=== PATIENT | male | born 1950 | race Hispanic/Latino ===

== ENCOUNTER 2017-12-18 19:48 | Emergency (ER) | payer MEDICARE ==
[~2017-12-18] VITALS: Ht 165.1 cm; Wt 88.0 kg
[2017-12-18 20:15] VITALS: BP 117/76
== END 2017-12-18 20:28 | disposition home or self-care (01) ==
LOC: ER 19:48
DX: M25.532 Pain in left wrist (principal); G56.02 Carpal tunnel syndrome, left upper limb
CPT/HCPCS: 99284

== ENCOUNTER 2017-12-25 01:27 | Emergency (ER) | payer MEDICARE ==
[~2017-12-25] VITALS: Ht 165.1 cm; Wt 88.0 kg
[2017-12-25 02:03] LABS: BILIRUBIN,URINE NEGATIVE (NEGATIVE); CLARITY,URINE CLEAR (CLEAR); COLOR,URINE YELLOW (YELLOW); KETONES,URINE NEGATIVE (NEGATIVE); LEUKOCYTE ESTERASE ,URINE NEGATIVE (NEGATIVE); NITRITE,URINE NEGATIVE (NEGATIVE); PROTEIN,URINE DIPSTICK NEGATIVE (NEGATIVE); URINE UROBILINOGEN 0.2 mg/dL (0.2 - 1)
[2017-12-25 02:08] LABS: BACTERIA,URINE RARE /HPF; EPITHELIAL CELLS,URINE FEW /LPF; WBC,URINE (MAN) 0-5 /HPF (0-5)
[2017-12-25 03:33] VITALS: BP 108/69
== END 2017-12-25 03:21 | disposition home or self-care (01) ==
LOC: ER 01:27
DX: I95.1 Orthostatic hypotension (principal); E11.9 Type 2 diabetes mellitus without complications; G47.33 Obstructive sleep apnea (adult) (pediatric)
CPT/HCPCS: 81001; 99282

== ENCOUNTER → 2018-08-31 | Outpatient (RCR) | payer MEDICARE ==
[~2018-08-31] MED LIST: BYDUREON2 MG INJ; CLOMIPHENE CITR50 MG PO; COQ-10100 MG PO; FLOMAX0.4 MG PO; INVOKAMET PO; RANITIDINE HCL150 MG PO; SIMVASTATIN40 MG PO; TRIAMTERENE-HC1 EAC2 PO
== END ==
LOC: PT 08-17 15:50
PROVIDERS: ATTEND Specialist
DX: M75.121 Complete rotator cuff tear or rupture of right shoulder, not specified as traumatic (principal); M25.511 Pain in right shoulder; M62.81 Muscle weakness (generalized)
CPT/HCPCS: 97010; 97110 ×4; 97162; G8984; G8985

== ENCOUNTER 2018-09-07 15:35 | Outpatient (RCR) | payer MEDICARE, OTHER ==
[2018-11-04] MEDS ORDERED: INVOKAMET PO (09:57)
[2018-11-04] MEDS ORDERED: BYDUREON2 MG INJ (09:57)
[2018-11-04] MEDS ORDERED: FLOMAX0.4 MG PO (09:58)
[2018-11-04] MEDS ORDERED: SIMVASTATIN40 MG PO (09:58)
[2018-11-04] MEDS ORDERED: CLOMIPHENE CITR50 MG PO (09:58)
[2018-11-04] MEDS ORDERED: TRIAMTERENE-HC1 EAC2 PO (09:59)
[2018-11-04] MEDS ORDERED: RANITIDINE HCL150 MG PO (09:59)
[2018-11-04] MEDS ORDERED: COQ-10100 MG PO (10:00)
== END 2018-09-30 ==
LOC: PT 15:35
PROVIDERS: ATTEND Specialist
DX: M75.121 Complete rotator cuff tear or rupture of right shoulder, not specified as traumatic (principal); M25.511 Pain in right shoulder; M62.81 Muscle weakness (generalized)
CPT/HCPCS: 97110 ×3; 97139; 97140; G8984; G8985

== ENCOUNTER → 2018-11-07 | Day surgery (SDC) | payer MEDICARE ==
[2018-11-04 10:17] LABS: BASOPHILS % 0.6 % (0.0-1.0); EOSINOPHILS # (AUTO) 0.1 (0.0-0.4); EOSINOPHILS % 1.8 % (0.0-6.0); HEMATOCRIT 46.8 % (38.2-49.6); HEMOGLOBIN 16.4 g/dL (14.0-18.0); LYMPHOCYTES # (AUTO) 1.9 (1.0-3.2); LYMPHOCYTES % 30.1 % (18.0-39.1); MEAN CORPUSCULAR HEMOGLOBIN 31.1 pg (28-32); MEAN CORPUSCULAR VOLUME 88.6 fL (81-99); MONOCYTES # (AUTO) 0.5 (0.2-0.8); MONOCYTES % 7.8 % (4.4-11.3); NEUTROPHILS # (AUTO) 3.7 (2.1-6.9); NEUTROPHILS % 59.4 % (38.7-80.0); PLATELET COUNT 208 x10e3/uL (140-360); RED BLOOD COUNT 5.28 x10e6/uL (4.3-5.7); RED CELL DISTRIBUTION WIDTH 12.6 % (11.7-14.4)
--- NOTE | 2018-11-04 10:35 | Diagnostic Imaging Report ---
EXAM: CHEST 2 VIEWS, PA and lateral DATE: 11/04/2018 9:54 AM Time stamp on exam: 10:00 AM INDICATION: Preoperative COMPARISON: None FINDINGS: LINES/TUBES: None LUNGS: No consolidations or edema. PLEURA: No effusions or pneumothorax. HEART AND MEDIASTINUM: Normal size and contour. BONES AND SOFT TISSUES: No acute findings. Degenerative spurring of the spine. IMPRESSION: No acute thoracic abnormality. Signed by: Dr. Pawel Dia DO on 11/04/2018 10:32 AM
[2018-11-04 10:49] LABS: BLOOD UREA NITROGEN 17 mg/dL (7-26); BUN/CREATININE RATIO 18 (6-25); CALCIUM 9.7 mg/dL (8.4-10.2); CARBON DIOXIDE 28 mmol/L (22-29); CHLORIDE 96 mmol/L (98-107); CREATININE, SERUM 0.93 mg/dL (0.72-1.25); EST GLOMERULAR FILTRATION RATE > 60 ML/MIN (60-); GLUCOSE 168 mg/dL (74-118); SODIUM 137 mmol/L (136-145)
[~2018-11-07] MED LIST changes: +CEFAZOLIN SOD 1 GM/D5W 50ML 50 ML IV ONE; +DEXAMETHASONE SOD PHOS INJ 4 MG/ML VIAL ONE; +EPHEDRINE SULFATE INJ 50 MG/10 ML SYR ONE; +EPINEPHRINE 1 MG/ML 30ML VIAL ONE; +EYE LUBRICANT OPTH OINT 3.5GM TUBE OP ONE; +FENTANYL CITRATE/PF 100MCG/2 ML INJ ONE; +GLYCOPYRROLATE INJ 1MG/ 5 ML SYR ONE; +LIDOCAINE 2% /EPINEPHRINE 20 ML SDV INJ ONE; +LIDOCAINE HCL 2% LOCAL INJ 5 ML SDV VIAL INJ ONE; +MIDAZOLAM HCL 2 MG/2 ML VIAL ONE; +NEOSTIGMINE 5 MG/5ML SYR ONE; +ONDANSETRON HCL INJ 2 MG/ML VIAL ONE; +PROPOFOL IV EMULSION 10 MG/ML 20 ML VIAL ONE; +ROCURONIUM BROMIDE 10 MG/ML 5ML VIAL ONE; +ROPIVACAINE 0.5% 5 MG/ML 30 ML SDV ONE; +SEVOFLURANE INHAL SOLN 250 ML PEN BTL ONE
--- OUTSIDE RECORDS SUMMARY | 2018-11-07 05:52 | XMS REPORT | Summary of Care ---
Author Author Baudilio Lezama Organization Unknown Address Unknown Phone Unavailable Care Team Providers Care Web Engineer Name Role Phone CORRALES M.D., ABSALON Unavailable Unavailable Baudilio Lezama Unavailable Unavailable MIRNA FISHER MD Unavailable Unavailable Unavailable Unavailable Functional Status Name Dates Details Functional status health issues are not documented Status: Name Dates Details Cognitive status health issues are not documented Status: Problems Name Dates Details Controlled type 2 diabetes mellitus without complication, without long-term current use of insulin (250.00, E11.9) Status: Active Other hyperlipidemia (272.4, E78.4) Status: Active Sleep apnea in adult (327.23, G47.30) Status: Active Medications Name Dates Details Invokamet 150-1000 MG Oral Tablet TAKE 1 TABLET BY MOUTH TWICE DAILY WITH MEALS CORRALES M.D., ABSALON * Start : 21-Jun-2018 Active Simvastatin 20 MG Oral Tablet TAKE 1 TABLET AT BEDTIME. * Refills: 0 CORRALES M.D., ABSALON * Start : 21-Jun-2018 Active RaNITidine HCl - 300 MG Oral Capsule TAKE 1 CAPSULE DAILY. * Refills: 0 CORRALES M.D., ABSALON * Start : 21-Jun-2018 Active Tamsulosin HCl - 0.4 MG Oral Capsule * Refills: 0 CORRALES M.D., ABSALON * Start : 21-Jun-2018 Active Vascepa 1 GM Oral Capsule * Refills: 0 CORRALES M.D., ABSALON * Start : 21-Jun-2018 Active Bydureon 2 MG Subcutaneous Pen-injector * Refills: 0 CORRALES M.D., ABSALON * Start : 21-Jun-2018 Active Vitamin D3 80446 UNIT Oral Capsule 1 capsule once weekly * Refills: 0 CORRALES M.D., ABSALON * Start : 21-Jun-2018 Active Allergies and Adverse Reactions Name Dates Details No Known Drug Allergies (Allergy) Status: Active Past Medical History Name Dates Details History of diabetes mellitus (V12.29, Z86.39) Status: Resolved History of high cholesterol (V12.29, Z86.39) Status: Resolved History of prostate disorder (V13.29, Z87.438) Status: Resolved Procedures Procedure Dates Details History of Hernia repair Completed History of Tonsillectomy Completed Immunization Name Dates Details Immunizations not documented Family History Name Dates Details Family history of diabetes mellitus (V18.0, Z83.3) Status: Active Name Dates Details Family history of diabetes mellitus (V18.0, Z83.3) Status: Active Name Dates Details Family history of diabetes mellitus (V18.0, Z83.3) Status: Active Social History Name Dates Details - Status: Name Dates Details Former smoker Vital Signs Date Test Result Details No Known Vitals to report Results Date Description Value Details Results not documented Plan of Care Name Dates Details Planned Observations Planned Goals not documented Planned Encounters Appointment; LAITH MONTAÑO M.D. On: 11-Oct-2018 14:00 Instructions Name Dates Details Instructions not documented Encounters Appointment; LUIS E CORRALES M.D. Encounter Diagnosis: Problem not documented On: 21-Jun-2018 14:00
--- OUTSIDE RECORDS SUMMARY | 2018-11-07 05:52 | XMS REPORT ---
Author Author [facility] Address Unknown Phone Unavailable Care Team Providers Care Electron Microscopist Name Role Phone LEWIS CONTRERAS Unavailable Unavailable Problems This patient has no known problems. Allergies, Adverse Reactions, Alerts This patient has no known allergies or adverse reactions. Medications This patient has no known medications. Results Test Description Test Time Test Comments Text Results Atomic Results Result Comments CHEST 2 VIEWS 2018-11-04 10:31:00 [place] [address] Patient Name: VINCE GRAHAM MR #: [id number] : 1950 Age/Sex: 68/M Req #: [id number] Adm Physician: Ordered by: LEWIS CONTRERAS MD Report #: [id number] Location: OR Room/Bed: Procedure: [id number] DX/CHEST 2 VIEWS Exam Date: 11/04/18 Exam Time: 1000 REPORT STATUS: Signed EXAM: CHEST 2 VIEWS, PA and lateral DATE: 11/04/2018 9:54 AM Time stamp on exam: 10:00 AM INDICATION: Preoperative COMPARISON: None FINDINGS: LINES/TUBES: None LUNGS: No consolidations or edema. PLEURA: No effusions or pneumothorax. HEART AND MEDIASTINUM: Normal size and contour. BONES AND SOFT TISSUES: No acute findings. Degenerative spurring of the spine. IMPRESSION: No acute thoracic abnormality. Signed by: Dr. Aleksandra Dia DO on 11/04/2018 10:32 AM Dictated By: ALEKSANDRA DIA DO 1032 Transcribed By: AZAEL on 11/04/18 1032 COPY TO: LEWIS CONTRERAS MD
[2018-11-07 10:55] VITALS: BP 121/72
--- NOTE | 2018-11-07 13:29 | Operative Report ---
DATE OF PROCEDURE: November 07, 2018 LOOM BLOWER: Daniel Galarza PA-C The patient was brought to the operating room for induction of anesthesia. Throughout this case, my PA's assistance was necessary for retraction of soft tissue and positioning of the extremity. This allows for efficient and technically successful execution of the operation and is considered medically necessary. PREOPERATIVE DIAGNOSIS: Rotator cuff tear right shoulder. POSTOPERATIVE DIAGNOSIS: Rotator cuff tear right shoulder. PROCEDURE: Right shoulder arthroscopy, subacromial decompression, rotator cuff repair. INDICATIONS: The patient is a 68-year-old gentleman who has a long history of right shoulder pain. Clinic exam and MRI findings are consistent with a full-thickness rotator cuff tear. The patient would like to proceed with definitive intervention. He has had a left shoulder rotator cuff repair in the past. He understands the risks and benefits and the lengthy recovery. He wishes to proceed. DESCRIPTION OF PROCEDURE: The patient was brought to the operating room and placed under general anesthetic. He received a regional block and prophylactic antibiotics in the holding area. He was positioned in the beach chair position on the shoulder table. A preoperative time out was performed. A standard posterior arthroscopy portal was established. The shoulder was insufflated with sterile saline. There was some degenerative fraying of the superior labrum. A lateral working portal was established. There was indeed a full-thickness tear of the supraspinatus and infraspinatus. A mechanical shaver was introduced into the joint. The articular surface of the rotator cuff tear was debrided back to more healthy tissue. The biceps tendon was inspected and probed. It was intact and stable at the supraglenoid tubercle. The glenohumeral surfaces showed some mild grade-1 changes. The fraying of the labrum was gently debrided. The scope was then placed into the subacromial space. A subacromial bursectomy and bone decompression were performed using a 5.5 mm Electroblade shaver. Hemostasis was obtained along the way. The lateral recess was opened up for better visibility. The greater tuberosity was gently decorticated. An Arthrex SpeedBridge double row system was used to repair the rotator cuff. Diverging co pilot holes were placed in the anterior and posterior portion of the tuberosity. The bioabsorbable anchors pre-loaded with FiberTape stitches were seeded. These were passed through the rotator cuff using a Scorpion suture passer. An anterior shuttle portal was established. The tendon was then repaired down to bleeding cancellous bone using superior lateral secondary suture anchors attached to the FiberTape stitches. Excellent secure fixation was felt to be obtained. The sutures were cut short, and the arthroscopic instruments were removed. The arthroscopic portal incisions were closed with nylon stitches. A sterile bandage and an UltraSling were applied. Estimated blood loss was 10 mL. At the end of the procedure, all needle and sponge counts were correct. Job#: [id number] EV
== END | disposition home or self-care (01) ==
LOC: OR 05:50
PROVIDERS: ATTEND Specialist
DX: M75.121 Complete rotator cuff tear or rupture of right shoulder, not specified as traumatic (principal); E11.9 Type 2 diabetes mellitus without complications; G47.33 Obstructive sleep apnea (adult) (pediatric); I10 Essential (primary) hypertension; E78.5 Hyperlipidemia, unspecified; K21.9 Gastro-esophageal reflux disease without esophagitis; Z01.810 Encounter for preprocedural cardiovascular examination; Z01.812 Encounter for preprocedural laboratory examination; Z01.818 Encounter for other preprocedural examination; Z79.82 Long term (current) use of aspirin; Z68.34 Body mass index [BMI] 34.0-34.9, adult; Z87.891 Personal history of nicotine dependence
CPT/HCPCS: 29827; 36415 ×2; 71046; 80048; 82948; 85025; 93005; C1713; J0690; J1100; J2001 ×2; J2250; J2405; J2704; J2795; J3490

== ENCOUNTER → 2018-12-29 | Outpatient (RCR) | payer MEDICARE ==
[~2018-12-29] MED LIST changes: -CEFAZOLIN SOD 1 GM/D5W 50ML 50 ML IV ONE; -DEXAMETHASONE SOD PHOS INJ 4 MG/ML VIAL ONE; -EPHEDRINE SULFATE INJ 50 MG/10 ML SYR ONE; -EPINEPHRINE 1 MG/ML 30ML VIAL ONE; -EYE LUBRICANT OPTH OINT 3.5GM TUBE OP ONE; -FENTANYL CITRATE/PF 100MCG/2 ML INJ ONE; -GLYCOPYRROLATE INJ 1MG/ 5 ML SYR ONE; -LIDOCAINE 2% /EPINEPHRINE 20 ML SDV INJ ONE; -LIDOCAINE HCL 2% LOCAL INJ 5 ML SDV VIAL INJ ONE; -MIDAZOLAM HCL 2 MG/2 ML VIAL ONE; -NEOSTIGMINE 5 MG/5ML SYR ONE; -ONDANSETRON HCL INJ 2 MG/ML VIAL ONE; -PROPOFOL IV EMULSION 10 MG/ML 20 ML VIAL ONE; -ROCURONIUM BROMIDE 10 MG/ML 5ML VIAL ONE; -ROPIVACAINE 0.5% 5 MG/ML 30 ML SDV ONE; -SEVOFLURANE INHAL SOLN 250 ML PEN BTL ONE
== END ==
LOC: PT 12-27 15:13
PROVIDERS: ATTEND Specialist
DX: M75.121 Complete rotator cuff tear or rupture of right shoulder, not specified as traumatic (principal); Z47.89 Encounter for other orthopedic aftercare; M25.511 Pain in right shoulder; M25.611 Stiffness of right shoulder, not elsewhere classified; M62.81 Muscle weakness (generalized)

== ENCOUNTER 2019-01-26 17:00 | Outpatient (RCR) | payer MEDICARE | END 2019-01-29 | LOC: PT 17:00 | PROVIDERS: ATTEND Specialist | DX: M75.121 Complete rotator cuff tear or rupture of right shoulder, not specified as traumatic (principal); Z47.89 Encounter for other orthopedic aftercare; M62.81 Muscle weakness (generalized); M25.511 Pain in right shoulder; M25.611 Stiffness of right shoulder, not elsewhere classified ==

== ENCOUNTER 2019-01-30 16:46 | Outpatient (RCR) | payer MEDICARE | END 2019-02-28 | LOC: PT 16:46 | PROVIDERS: ATTEND Specialist | DX: M75.121 Complete rotator cuff tear or rupture of right shoulder, not specified as traumatic (principal); Z47.89 Encounter for other orthopedic aftercare ==

== ENCOUNTER 2019-07-28 03:26 | Emergency (ER) | payer MEDICARE ==
[~2019-07-28] VITALS: Ht 165.1 cm; Wt 88.0 kg
--- OUTSIDE RECORDS SUMMARY | 2019-07-28 03:30 | XMS REPORT | Summary of Care ---
Author Author [facility] [place] Organization [facility] [place] Address Unknown Phone Unavailable Encounter HQ Encntr_alias(FIN) [id number] Date(s): 07/21/19 - 07/21/19 [facility] [place] [address], [place] [address] [phone] Discharge Disposition: Home or Self Care Attending Physician: Mj Arguelles MD Referring Physician: Mj Arguelles MD Vital Signs No data available for this section Problem List No data available for this section Allergies, Adverse Reactions, Alerts No Known Medication Allergies Medications No data available for this section Results No data available for this section Immunizations No data available for this section Procedures No data available for this section Social History No data available for this section Assessment and Plan No data available for this section
--- OUTSIDE RECORDS SUMMARY | 2019-07-28 03:30 | XMS REPORT | Continuity of Care Document ---
Author Author [employer] Address Unknown Phone Unavailable Care Team Providers Care Director Of Casino Name Role Phone [employer] [facility] Unavailable Unavailable Problems Problem Status Onset Date Classification Date Reported Comments Source DX: E11.42=TYPE 2 DIABETES MELLITUS WITH Active 01/12/2019 [facility] Pain in right shoulder 07/22/2018 02/01/2019 [facility] M25.511 - PAIN IN RIGHT SHOULDER Active 07/15/2018 [facility] Primary osteoarthritis, left shoulder 02/01/2019 [facility] Medications Medication Details Route Status Patient Instructions Ordering Provider Order Date Source Clomiphene Citrate 50 Mg Tablet Daily [facility] Exenatide Microspheres (Bydureon) 2 Mg Vial Wkly [facility] Invokamet Twice A Day [facility] Ranitidine Hcl 150 Mg Tablet Daily [facility] Simvastatin 40 Mg Tablet Daily [facility] Tamsulosin Hcl (Flomax*) 0.4 Mg Cap Daily [facility] Triamterene/Hydrochlorothiazid (Triamterene-Hctz 37.5-25 Mg Cp) 1 Each Capsule Daily [facility] Ubidecarenone (Coq-10) 100 Mg Capsule Daily [facility] Allergies, Adverse Reactions, Alerts Substance Category Reaction Severity Reaction type Status Date Reported Comments Source No Known Medication Allergies Assertion Drug allergy [facility] Immunizations No Data Provided for This Section Results Order Name Results Value Reference Range Date Interpretation Comments Source Capillary blood glucose measurement by glucometer (mass/volume) 164 70 - 120 11/07/2018 [facility] Blood leukocytes automated count (number/volume) 6.18 4.8 - 10.8 11/04/2018 [facility] Blood erythrocytes automated count (number/volume) 5.28 4.3 - 5.7 11/04/2018 [facility] Blood hemoglobin measurement (moles/volume) 16.4 14.0 - 18.0 11/04/2018 [facility] Automated blood hematocrit (volume fraction) 46.8 38.2 - 49.6 11/04/2018 [facility] Automated erythrocyte mean corpuscular volume 88.6 81 - 99 11/04/2018 [facility] Automated erythrocyte mean corpuscular hemoglobin (mass per erythrocyte) 31.1 28 - 32 11/04/2018 [facility] Automated erythrocyte mean corpuscular hemoglobin concentration measurement (mass/volume) 35.0 31 - 35 11/04/2018 [facility] RDW BldCo-Rto 12.6 11.7 - 14.4 11/04/2018 [facility] Automated blood platelet count (count/volume) 208 140 - 360 11/04/2018 [facility] Automated blood segmented neutrophil count as percentage of total leukocytes 59.4 38.7 - 80.0 11/04/2018 [facility] Automated blood lymphocyte count as percentage ot total leukocytes 30.1 18.0 - 39.1 11/04/2018 [facility] Automated blood monocyte count as percentage of total leukocytes 7.8 4.4 - 11.3 11/04/2018 [facility] Automated blood eosinophil count as percentage of total leukocytes 1.8 0.0 - 6.0 11/04/2018 [facility] Automated blood basophil count as percentage of total leukocytes 0.6 0.0 - 1.0 11/04/2018 [facility] IM GRANULOCYTES % 0.3 0.0 - 1.0 11/04/2018 [facility] Automated blood neutrophil count 3.7 2.1 - 6.9 11/04/2018 [facility] Blood lymphocytes count (number/volume) 1.9 1.0 - 3.2 11/04/2018 [facility] Blood monocytes automated count (number/volume) 0.5 0.2 - 0.8 11/04/2018 [facility] Automated blood eosinophil count 0.1 0.0 - 0.4 11/04/2018 [facility] Automated blood basophil count (count/volume) 0.0 0.0 - 0.1 11/04/2018 [facility] Absolute Immature Granulocyte (auto 0.02 0 - 0.1 11/04/2018 [facility] Serum or plasma sodium measurement (moles/volume) 137 136 - 145 11/04/2018 [facility] Serum or plasma potassium measurement (moles/volume) 4.0 3.5 - 5.1 11/04/2018 [facility] Serum or plasma chloride measurement (moles/volume) 96 98 - 107 11/04/2018 [facility] Serum or plasma carbon dioxide, total measurement (moles/volume) 28 22 - 29 11/04/2018 [facility] Serum or plasma anion gap 17.0 8 - 16 11/04/2018 [facility] Serum or plasma urea nitrogen measurement (mass/volume) 17 7 - 26 11/04/2018 [facility] Serum or plasma creatinine measurement (mass/volume) 0.93 0.72 - 1.25 11/04/2018 [facility] Serum or plasma urea nitrogen/creatinine mass ratio 18 6 - 25 11/04/2018 [facility] Estimated glomerular filtration rate (GFR) determination > 60 60 11/04/2018 [facility] Glucose measurement 168 74 - 118 11/04/2018 [facility] Serum or plasma calcium measurement (mass/volume) 9.7 8.4 - 10.2 11/04/2018 [facility] Urine color determination YELLOW YELLOW 12/25/2017 [facility] Urine clarity CLEAR CLEAR 12/25/2017 [facility] Specific gravity of Urine by Test strip 1.015 1.010 - 1.025 12/25/2017 [facility] Urine pH measurement by automated test strip 6.5 5 - 7 12/25/2017 [facility] Urine leukocyte esterase detection by dipstick NEGATIVE NEGATIVE 12/25/2017 [facility] Urine nitrite detection NEGATIVE NEGATIVE 12/25/2017 [facility] Urine protein measurement by test strip (mass/volume) NEGATIVE NEGATIVE 12/25/2017 [facility] Urine glucose detection 3+ NEGATIVE 12/25/2017 [facility] Urine ketones detection by automated test strip NEGATIVE NEGATIVE 12/25/2017 [facility] Urine urobilinogen measurement by test strip (mass/volume) 0.2 0.2 - 1 12/25/2017 [facility] Urine total bilirubin measurement (mass/volume) NEGATIVE NEGATIVE 12/25/2017 [facility] Urine erythrocytes detection NEGATIVE NEGATIVE 12/25/2017 [facility] Automated urine sediment leukocyte count by microscopy (number/high power field) 0-5 0 - 5 12/25/2017 [facility] Erythrocytes detection in urine sediment by light microscopy NONE 0 - 5 12/25/2017 [facility] Bacteria detection in urine sediment by light microscopy RARE NONE 12/25/2017 [facility] Epithelial cells detection in urine sediment by light microscopy FEW NONE 12/25/2017 [facility] Automated urine sediment leukocyte count by microscopy (number/high power field) Automated urine sediment leukocyte count by microscopy (number/high power field) <5 0 - 5 12/25/2017 [facility] Bacteria detection in urine sediment by light microscopy Bacteria detection in urine sediment by light microscopy RARE NONE 12/25/2017 [facility] Epithelial cells detection in urine sediment by light microscopy Epithelial cells detection in urine sediment by light microscopy FEW NONE 12/25/2017 [facility] Erythrocytes detection in urine sediment by light microscopy Erythrocytes detection in urine sediment by light microscopy NONE 0 - 5 12/25/2017 [facility] Specific gravity of Urine by Test strip Specific gravity of Urine by Test strip 1.015 1.010 - 1.025 12/25/2017 [facility] Urine clarity Urine clarity CLEAR CLEAR 12/25/2017 [facility] Urine color determination Urine color determination YELLOW YELLOW 12/25/2017 [facility] Urine erythrocytes detection Urine erythrocytes detection NEGATIVE NEGATIVE 12/25/2017 [facility] Urine glucose detection Urine glucose detection 3+ NEGATIVE 12/25/2017 [facility] Urine ketones detection by automated test strip Urine ketones detection by automated test strip NEGATIVE NEGATIVE 12/25/2017 [facility] Urine leukocyte esterase detection by dipstick Urine leukocyte esterase detection by dipstick NEGATIVE NEGATIVE 12/25/2017 [facility] Urine nitrite detection Urine nitrite detection NEGATIVE NEGATIVE 12/25/2017 [facility] Urine pH measurement by automated test strip Urine pH measurement by automated test strip 6.5 5 - 7 12/25/2017 [facility] Urine protein measurement by test strip (mass/volume) Urine protein measurement by test strip (mass/volume) NEGATIVE NEGATIVE 12/25/2017 [facility] Urine total bilirubin measurement (mass/volume) Urine total bilirubin measurement (mass/volume) NEGATIVE NEGATIVE 12/25/2017 [facility] Urine urobilinogen measurement by test strip (mass/volume) Urine urobilinogen measurement by test strip (mass/volume) 0.2 0.2 - 1 12/25/2017 [facility] Pathology Reports No Data Provided for This Section Diagnostic Reports Report Value Date Source Liver US EXAM: Hepatic ultrasound. CLINICAL HX: - R97.20 Elevated prostate specific antigen [PSA]. Age: 68 years. Gender: Male. TECHNIQUE: Grayscale and Doppler sonogram of the liver. Facility: [facility]. COMPARISON: None. FINDINGS: Midline structures: -- Pancreas: Visualized portion is unremarkable. -- Aorta: Visualized portion is unremarkable. -- IVC: Visualized portion is unremarkable. Liver: -- Parenchyma: Homogenous echotexture. -- Contour: Smooth. -- Length: 15.1 cm. -- Other: 3.2 x 3 x 1.9 cm echogenic right lobe mass. Hepatic vessels: -- Portal veins: Normal directional flow. Main portal vein measures 2.2 cm. -- Hepatic veins: Normal directional flow. -- Hepatic artery: Resistive index 0.67. Gallbladder: -- Intraluminal gallstones: Multiple intraluminal gallstones. -- Wall: Mildly thickened (measure 0.4 cm). -- Sonographic Layton sign: Negative. -- Other: None. Common bile duct: -- Diameter: 0.7 cm. Other: None. IMPRESSION: 1. Cholelithiasis with nonspecific gallbladder wall thickening. Negative sonographic Layton's sign makes cholecystitis less likely, but if additional imaging evaluation is desired, consider HIDA scan. 2. Borderline sized common bile duct. Consider correlation with biliary enzymes. 3. Right hepatic 2.2 cm echogenic mass which is indeterminate but is statistically focal fatty infiltration or hemangioma. However, if there are malignancy risk factors, consider further evaluation with hepatic mass protocol MRI with and without contrast. 07/21/2019 [facility] Chest 2 views DX Exam: Two-view chest x-ray Reason for Exam: - R50.9 Fever, unspecified Comparison Exam: None Discussion: Cardiomediastinal silhouette is within normal limits. Both hemidiaphragms well visualized. No pulmonary edema or pleural effusions. No focal lung consolidations. Trachea is midline. No acute bony abnormalities. Moderate multilevel degenerative disc disease seen within the thoracic spine. Impression: 1. No acute cardiopulmonary abnormalities. 07/12/2019 [facility] Wrist complete DX EXAM: Wrist complete DX HISTORY: - M25.532 Pain in left wrist COMPARISON: None 3 views of the left wrist. FINDINGS: No fracture or dislocation is apparent. There is mild distal radial osteophyte formation. Minimal degenerative changes at the thumb carpometacarpal joint. IMPRESSION: Mild degenerative change. No acute radiographic abnormality. 12/28/2018 [facility] Shoulder 2+ Views Bilateral DX Exam: Right and left shoulder x-rays, 3 views each Reason for Exam: Bilateral shoulder pain Comparison Exam: None Discussion: Right: No acute bony abnormalities identified. Glenohumeral joint is unremarkable. Moderate osteoarthritis is seen of the AC joint. No suspicious osteoblastic or osteolytic lesions. Visualized portions of the right rib cage and right lung are unremarkable. Left: No acute bony abnormalities identified. Glenohumeral joint is unremarkable. The distal clavicle appears blunted and shortened. This is a nonspecific finding. Correlate for history of past trauma and surgery. No suspicious osteoblastic or osteolytic lesions. Visualized portions of the left rib cage and left lung are unremarkable. Impression: 1. No acute bony abnormalities identified. Moderate osteoarthritis is seen of the AC joint. The distal left clavicle appears blunted and shortened. This is a nonspecific finding. Correlate for history of past trauma and surgery. 07/15/2018 [facility] Consultation Notes No Data Provided for This Section Discharge Summaries No Data Provided for This Section History and Physicals No Data Provided for This Section Vital Signs No Data Provided for This Section Encounters Location Location Details Encounter Type Encounter Number Reason For Visit Attending Provider ADM Date DC Date Status Source Departed Emergency Room [id number] CARMELO VEE MD 12/18/2017 12/18/2017 [facility] Departed Emergency Room [id number] COREY ZAMAN MD 12/25/2017 12/25/2017 [facility] [place] Out[facility] Services [id number] Mj Arguelles 07/15/2018 07/16/2018 [facility] Discharged Recurring [id number] LEWIS CONTRERAS MD 08/17/2018 08/31/2018 [facility] Discharged Recurring [id number] LEWIS CONTRERAS MD 09/05/2018 09/30/2018 [facility] Registered Surgical Day Care [id number] LEWIS CONTRERAS MD 11/07/2018 [facility] Discharged Recurring [id number] LEWIS CONTRERAS MD 12/27/2018 12/29/2018 [facility] - [place] Out[facility] [id number] Mj Arguelles 12/28/2018 12/29/2018 [facility] Discharged Recurring [id number] LEWIS CONTRERAS MD 01/02/2019 01/29/2019 [facility] Discharged Recurring [id number] LEWIS CONTRERAS MD 01/30/2019 02/28/2019 [facility] Outpatient [id number] Mj Arguelles 02/20/2019 02/21/2019 [facility] Outpatient Imaging - [place] Out[facility] Diag Services [id number] Mj Hesterr 07/12/2019 07/13/2019 [facility] Outpatient Imaging - [place] Out[facility] Diag Services [id number] Mj Hesterr 07/21/2019 07/22/2019 [facility] Procedures Procedure Code Date Perfomer Comments Source ARTHROSCOP ROTATOR CUFF REPR [id number] 11/07/2018 [facility] X-ray of chest, two views [id number] 11/04/2018 [facility] APPLY FOREARM SPLINT [id number] 12/18/2017 [facility] Assessment and Plan No Data Provided for This Section Plan of Care Plan of Care Date Source Prescriptions See Medication Section 03/01/2019 [facility] Prescriptions See Medication Section 01/30/2019 [facility] Prescriptions See Medication Section 10/01/2018 [facility] Discharge Date 12/25/17 3:21am Disposition HOME, SELF-CARE Condition at Discharge Stable Instructions/Education Provided Dehydration - Adult Forms Provided Work/School Excuse Prescriptions See Medication Section Additional Instructions/Education INCREASE FLUID INTAKE 12/25/2017 [facility] Social History Social History Date Source No data available for this section 07/22/2019 [facility] No social history information available. 03/01/2019 [facility] No data available for this section 02/21/2019 [facility] Family History No Data Provided for This Section Advance Directives Order Name Results Value Date Source Advance Directives Advance Directives Directive Response Recorded Date/Time Does the patient have an advance directive? No 12/18/17 8:33pm If yes, is advance directive on file with [facility]? No 12/18/17 8:33pm If not on file with [facility] will patient provide a copy? No 08/04/18 5:13pm Do you have a Directive to Physician? No 01/30/19 4:46pm Do you have a Medical Power of Field Pipe Lines Supervisor? No 01/30/19 4:46pm Do you have an out of hospital Do Not Resuscitate Order? No 01/30/19 4:46pm Do you have any special needs we should be aware of? No 01/30/19 4:46pm Do you have a support person here with you today? No 01/30/19 4:46pm Did patient receive Notice of Privacy Practices? Yes 01/30/19 4:46pm Did patient receive patient rights and responsibilities? Yes 01/30/19 4:46pm 03/01/2019 [facility] Advance Directives Advance Directives Directive Response Recorded Date/Time Does the patient have an advance directive? No 12/18/17 8:33pm If yes, is advance directive on file with [facility]? No 12/18/17 8:33pm If not on file with [facility] will patient provide a copy? No 08/04/18 5:13pm Do you have a Directive to Physician? No 01/02/19 4:02pm Do you have a Medical Power of Field Pipe Lines Supervisor? No 01/02/19 4:02pm Do you have an out of hospital Do Not Resuscitate Order? No 01/02/19 4:02pm Do you have any special needs we should be aware of? No 01/02/19 4:02pm Do you have a support person here with you today? No 01/02/19 4:02pm Did patient receive Notice of Privacy Practices? No 01/02/19 4:02pm Did patient receive patient rights and responsibilities? No 01/02/19 4:02pm 01/30/2019 [facility] Advance Directives Advance Directives Directive Response Recorded Date/Time Does the patient have an advance directive? No 12/18/17 8:33pm If yes, is advance directive on file with [facility]? No 12/18/17 8:33pm If not on file with [facility] will patient provide a copy? No 08/04/18 5:13pm Do you have a Directive to Physician? No 09/01/18 2:56pm Do you have a Medical Power of Field Pipe Lines Supervisor? No 09/01/18 2:56pm Do you have an out of hospital Do Not Resuscitate Order? No 09/01/18 2:56pm Do you have any special needs we should be aware of? No 09/01/18 2:56pm Do you have a support person here with you today? No 09/01/18 2:56pm Did patient receive Notice of Privacy Practices? No 09/01/18 2:56pm Did patient receive patient rights and responsibilities? No 09/01/18 2:56pm 10/01/2018 [facility] Advance Directives Advance Directives Directive Response Recorded Date/Time Does the patient have an advance directive? No 12/18/17 8:33pm If yes, is advance directive on file with [facility]? No 12/18/17 8:33pm If not on file with [facility] will patient provide a copy? Yes 12/25/17 1:58am Do you have a Directive to Physician? No 12/25/17 1:58am Do you have a Medical Power of Field Pipe Lines Supervisor? No 12/25/17 1:58am Do you have an out of hospital Do Not Resuscitate Order? No 12/25/17 1:58am Do you have any special needs we should be aware of? No 12/25/17 1:58am Do you have a support person here with you today? Yes 12/25/17 1:58am Did patient receive Notice of Privacy Practices? Yes 12/25/17 1:58am Did patient receive patient rights and responsibilities? Yes 12/25/17 1:58am 12/25/2017 [facility] Functional Status No Data Provided for This Section
--- OUTSIDE RECORDS SUMMARY | 2019-07-28 03:31 | XMS REPORT | Summary of Care ---
Author Author [facility] [place] Organization [facility] [place] Address Unknown Phone Unavailable Encounter [facility] Encntr_alideep(FIN) [id number] Date(s): 07/15/18 - 07/15/18 [facility] - [place] [address] [place] [phone] Encounter Diagnosis Pain in right shoulder (Final) - 07/21/18 Primary osteoarthritis, left shoulder (Final) - Discharge Disposition: Home or Self Care Attending Physician: Mj Arguelles MD Referring Physician: Mj Arguelles MD Vital Signs No data available for this section Problem List No data available for this section Allergies, Adverse Reactions, Alerts Substance Reaction Severity Status NKDA Active Medications No data available for this section Results No data available for this section Immunizations No data available for this section Procedures No data available for this section Social History No data available for this section Assessment and Plan No data available for this section
--- OUTSIDE RECORDS SUMMARY | 2019-07-28 03:31 | XMS REPORT | Summary of Care ---
Author Author [facility] - [place] Organization [facility] [place] Address Unknown Phone Unavailable Encounter [facility] Encntr_alias(FIN) [id number] Date(s): 07/12/19 - 07/12/19 [facility] [place] [address] [place], [place] [address] [phone] Discharge Disposition: Home or Self Care Attending [...]
--- OUTSIDE RECORDS SUMMARY | 2019-07-28 03:31 | XMS REPORT | Summary of Care ---
Author Author [facility] Organization [facility] Address Unknown Phone Unavailable Encounter HQ Encntr_alias(FIN) [id number] Date(s): 02/20/19 - 02/20/19 [facility] [address] [place] [address] Discharge Disposition: Home or Self Care Attending [...]
--- OUTSIDE RECORDS SUMMARY | 2019-07-28 03:31 | XMS REPORT | Summary of Care ---
Author Author [facility] - [place] Organization [facility] [place] Address Unknown Phone Unavailable Encounter [facility] Encntr_alias(FIN) [id number] Date(s): 12/28/18 - 12/28/18 [facility] - [place] [address] [place] [phone] Discharge Disposition: Home or Self Care Attending [...]
[2019-07-28 04:31] LABS: BILIRUBIN,URINE SMALL (NEGATIVE); CLARITY,URINE CLOUDY (CLEAR); COLOR,URINE YELLOW (YELLOW); KETONES,URINE 1+ (NEGATIVE); LEUKOCYTE ESTERASE ,URINE SMALL (NEGATIVE); NITRITE,URINE NEGATIVE (NEGATIVE); URINE UROBILINOGEN 0.2 mg/dL (0.2 - 1)
[2019-07-28 04:34] LABS: PROTEIN,URINE DIPSTICK 3+ (NEGATIVE)
[2019-07-28 04:45] LABS: BACTERIA,URINE MANY /HPF; EPITHELIAL CELLS,URINE FEW /LPF; RBC,URINE >50 /HPF (0-5); WBC,URINE (MAN) >50 /HPF (0-5)
[2019-07-28 04:58] VITALS: BP 98/53
== END 2019-07-28 05:21 | disposition home or self-care (01) ==
LOC: ER 03:26
DX: R30.0 Dysuria (principal); N30.91 Cystitis, unspecified with hematuria
CPT/HCPCS: 81001; 87086; 87186; 99283

== ENCOUNTER → 2019-10-11 | Day surgery (SDC) | payer MEDICARE ==
[2019-09-27 15:39] LABS: BASOPHILS % 0.6 % (0.0-1.0); EOSINOPHILS # (AUTO) 0.2 (0.0-0.4); EOSINOPHILS % 3.1 % (0.0-6.0); HEMATOCRIT 38.4 % (38.2-49.6); HEMOGLOBIN 13.7 g/dL (14.0-18.0); LYMPHOCYTES # (AUTO) 1.9 (1.0-3.2); LYMPHOCYTES % 30.2 % (18.0-39.1); MEAN CORPUSCULAR HEMOGLOBIN 30.7 pg (28-32); MEAN CORPUSCULAR HGB CONC 35.7 g/dL (31-35); MEAN CORPUSCULAR VOLUME 86.1 fL (81-99); MONOCYTES # (AUTO) 0.5 (0.2-0.8); MONOCYTES % 8.3 % (4.4-11.3); NEUTROPHILS # (AUTO) 3.7 (2.1-6.9); NEUTROPHILS % 57.5 % (38.7-80.0); PLATELET COUNT 222 x10e3/uL (140-360); RED BLOOD COUNT 4.46 x10e6/uL (4.3-5.7); RED CELL DISTRIBUTION WIDTH 12.1 % (11.7-14.4)
[2019-09-27 15:49] LABS: BILIRUBIN,URINE NEGATIVE (NEGATIVE); CLARITY,URINE SL CLOUDY (CLEAR); COLOR,URINE YELLOW (YELLOW); KETONES,URINE NEGATIVE (NEGATIVE); LEUKOCYTE ESTERASE ,URINE NEGATIVE (NEGATIVE); NITRITE,URINE NEGATIVE (NEGATIVE); PROTEIN,URINE DIPSTICK NEGATIVE (NEGATIVE); URINE UROBILINOGEN 0.2 mg/dL (0.2 - 1)
[2019-09-27 15:53] LABS: ANION GAP 16.1 mmol/L (8-16); BLOOD UREA NITROGEN 19 mg/dL (7-26); BUN/CREATININE RATIO 17 (6-25); CALCIUM 9.7 mg/dL (8.4-10.2); CARBON DIOXIDE 26 mmol/L (22-29); CHLORIDE 99 mmol/L (98-107); CREATININE, SERUM 1.15 mg/dL (0.72-1.25); EST GLOMERULAR FILTRATION RATE > 60 ML/MIN (60-); GLUCOSE 342 mg/dL (74-118); POTASSIUM 4.1 mmol/L (3.5-5.1); SODIUM 137 mmol/L (136-145)
--- NOTE | 2019-09-27 16:07 | Diagnostic Imaging Report ---
Chest, 2 views, 09/27/2019. History: Preop, gallbladder surgery. Comparison: 11/04/2018. Findings: The cardiomediastinal silhouette and pulmonary vasculature are within normal limits. The lungs are clear without evidence of consolidation or pleural effusion. Degenerative changes are present throughout the thoracic spine. There are no acute osseous or soft tissue abnormalities. Impression: No acute cardiopulmonary abnormality. Signed by: Dixon Ryan on 09/27/2019 4:04 PM
[~2019-10-11] MED LIST changes: +ACETAMINOPHEN 1000 MG/100 ML IV ONE; +BUPIVACAINE 0.25%/EPI 30ML SDV INJ ONE; +BYDUREON P2 MG/0.65 SQ; +DEXAMETHASONE SOD PHOS INJ 4 MG/ML VIAL ONE; +FENTANYL CITRATE/PF 100MCG/2 ML INJ ONE; +GLIMEPIRIDE2 MG PO; +GLYCOPYRROLATE INJ 0.2 MG/ML VIAL ONE; +HYDROCODONE/APAP 7.5MG-325MG 1 EA TAB ONE; +KETOROLAC TROMETHAMINE 30 MG/ML VIAL ONE; +LIDOCAINE HCL 2% LOCAL INJ 5 ML SDV VIAL INJ ONE; +LISINOPRIL2.5 MG PO; +METFORMIN HCL500 MG PO; +METOCLOPRAMIDE HCL 10 MG/2ML VIAL ONE; +MIDAZOLAM HCL 2 MG/2 ML VIAL ONE; +NEOSTIGMINE 1 MG/ML 10ML VIAL ONE; +ONDANSETRON HCL INJ 2MG/ML 2ML 2 MG/ML VIAL ONE; +PROPOFOL IV EMULSION 10 MG/ML 20 ML VIAL ONE; +ROCURONIUM BROMIDE 10 MG/ML 5ML VIAL ONE; +SEVOFLURANE INHAL SOLN 250 ML PEN BTL ONE
[2019-10-11 11:25] VITALS: BP 123/66
--- NOTE | 2019-10-11 17:38 | Operative Report ---
DATE OF PROCEDURE: 10/11/2019 SURGEON: Kwame Costa MD PREOPERATIVE DIAGNOSIS: Cholecystitis and cholelithiasis. POSTOPERATIVE DIAGNOSIS: Cholecystitis and cholelithiasis. OPERATION PERFORMED: Laparoscopic cholecystectomy. ASSISTANTS: Samuel Costa MD and LULA Matt. ANESTHESIA: General. COMPLICATIONS: None. ESTIMATED BLOOD LOSS: Minimal. DESCRIPTION OF PROCEDURE: With the patient lying in bed in the supine position, under good general endotracheal anesthesia, and the abdomen was prepped with Betadine solution and draped in the usual manner. A Veress needle was introduced into the right upper quadrant and pneumoperitoneum was established without any difficulty. A 5 mm trocar was placed in the right subcostal region and a 5 mm video laparoscope was placed into the intraabdominal cavity. Video laparoscopy at this point revealed no adhesions to the subumbilical area from the patient's previous umbilical hernia repair. An 11 mm trocar was then placed through the umbilicus into the intraabdominal cavity and a 10 mm video laparoscope was placed into the intraabdominal cavity. Under direct vision, two more 5 mm trocars were placed in the right subcostal region. Laparoscopy at this point, revealed the gallbladder could not be visualized as the gallbladder was totally covered up with adhesions from the omentum, duodenum, and stomach. The adhesions were then slowly and carefully taken down. We were then able to visualize the gallbladder, which contained multiple large stones. There was again a lot of adhesions and a lot of fibrosis from chronic inflammatory reaction. Other positive findings at laparoscopy, was the patient had some fatty infiltration of the of the liver. Once all the adhesions were taken down, the peritoneum overlying the neck of the gallbladder was then opened and the cystic duct was identified. The cystic duct was followed to its junction with the common duct. The cystic duct was then circumferentially dissected away from the common duct, doubly clipped, and divided. The cystic artery was similarly doubly clipped and divided, had an anterior and a posterior branch, and both of these were individually clipped. The gallbladder was then slowly and carefully taken off the liver bed using the cautery scissors. Again, there was quite a reaction of fibrosis of the liver bed from the chronic inflammatory process, nonetheless the gallbladder was totally and completely removed from the liver bed and hemostasis was ascertained. The gallbladder was then placed in a pouch and removed through the umbilicus after enlarge in the umbilical incision to allow passage of the large stones. Video laparoscopy was then again carried out, the liver bed was found to be perfectly dry, all the excess fluid was aspirated. The pneumoperitoneum was evacuated and all the trocars were removed under direct vision. The midline fascia at the umbilicus was then closed with two [id number] of 0 Vicryl, all layers were infiltrated on the way out with solution of 0.25% Marcaine. Subcutaneous tissue was approximated with 3-0 Vicryl and the skin was closed with subcuticular 5-0 Vicryl. Benzoin, Steri-Strips, and Band-Aids were applied. The sponge, lap, and needle counts were correct. The patient tolerated the procedure well and returned to the recovery room in stable condition. MD MARKELL Skaggs/PAOLA /[id number]
== END | disposition home or self-care (01) ==
LOC: OR 06:13
PROVIDERS: ATTEND Surgery
DX: K80.10 Calculus of gallbladder with chronic cholecystitis without obstruction (principal); C23 Malignant neoplasm of gallbladder; Z01.810 Encounter for preprocedural cardiovascular examination; Z01.812 Encounter for preprocedural laboratory examination; Z01.811 Encounter for preprocedural respiratory examination; K66.0 Peritoneal adhesions (postprocedural) (postinfection); K76.0 Fatty (change of) liver, not elsewhere classified
CPT/HCPCS: 36415 ×2; 47562; 71046; 80048; 81003; 82948; 85025; 88309; 93005; C1766; J0131; J1100; J1885; J2001; J2250; J2405; J2704; J2710; J2765; J3010; 88304